=== PATIENT | male | born 1975 | race Caucasian/White ===

== ENCOUNTER → 2020-07-13 | Outpatient (CLI) | payer OTHER | LOC: EXRD 10:29 | DX: M79.671 Pain in right foot (principal); R51.9 Headache, unspecified; M19.071 Primary osteoarthritis, right ankle and foot | CPT/HCPCS: 73630 ==

== ENCOUNTER → 2020-08-13 | Outpatient (CLI) | payer OTHER | LOC: EXRD 09:27 | DX: B19.20 Unspecified viral hepatitis C without hepatic coma (principal); R16.1 Splenomegaly, not elsewhere classified | CPT/HCPCS: 76700 ==

== ENCOUNTER 2021-03-25 10:33 | Emergency (ER) | payer SELFPAY ==
[2021-03-25 11:25] LABS: HEMOGLOBIN 18.1 gm/dl (14.0-17.5); RED BLOOD COUNT 5.74 M/UL (4.20-5.50); WHITE BLOOD COUNT 6.7 K/UL (4.5-11.0)
[2021-03-25 12:12] LABS: BUN/CREATININE RATIO 33 (0-10)
[2021-03-25] MEDS ORDERED: ZOFRAN 4 MG TAB4 MG PO (16:23)
== END 2021-03-25 16:55 | disposition home or self-care (01) ==
LOC: ER1 10:33
PROVIDERS: Emergency Medicine
DX: J06.9 Acute upper respiratory infection, unspecified (principal); R10.9 Unspecified abdominal pain; R19.7 Diarrhea, unspecified; Z20.822 Contact with and (suspected) exposure to COVID-19; Z87.442 Personal history of urinary calculi; R94.5 Abnormal results of liver function studies; I10 Essential (primary) hypertension
CPT/HCPCS: 0240U; 71045; 80053; 81001; 82550; 82553; 83690; 83874; 84484; 85025; 93005; 96374; 96375; 99284; J1885; J2405; Q9967